=== PATIENT | female | born 1960 | race Caucasian/White ===

== ENCOUNTER → 2020-08-09 17:25 | Outpatient (CLI) | payer OTHER, SELFPAY ==
--- NOTE | ~2020-08-09 | XR_ITS ---
EXAMINATION: XR abdomen/kub 1V EXAM DATE: 08/09/2020 18:27 INDICATION: Kidneys. Right low back pain. Lithotripsy one week ago. TECHNIQUE: Frontal projection of the upper abdomen, frontal projection lower abdomen/pelvis for inter pretation. Comparison is made to prior examination from 08/23/2014. FINDINGS: Several densities projecting over the right renal contour, could be kidney stones. Pelvic calcifications likely phleboliths. There are cholecystectomy clips. There is a nonobstructive bowel g as pattern. Lung bases unremarkable. IMPRESSION: Probable right nephrolithiasis. Reviewed, dictated and finalized at location A.
== END ==
DX: N20.0 Calculus of kidney (principal)
CPT/HCPCS: 74018